=== PATIENT | female | born 1940 | race African-American/Black ===

== ENCOUNTER 2020-03-06 12:40 | Emergency (ER) | payer BC ==
[~2020-03-06] VITALS: Ht 160 cm; Wt 82.0 kg
[2020-03-06] MEDS ORDERED: ACETAMINOPHEN 325MG TABLET PO ONE (15:30)
[2020-03-06 16:00] VITALS: BP 140/37
[2020-03-07] MEDS ORDERED: METF-816 MT (14:21)
[2020-03-07] MEDS ORDERED: LOSA100T32 MT (14:21)
[2020-03-07] MEDS ORDERED: LEVO100T9 MT (14:21)
[2020-03-07] MEDS ORDERED: GLIP5TAB12 MT (17:06)
== END 2020-03-06 18:10 | disposition home or self-care (01) ==
LOC: EDBD → ER 12:40
DX: S93.402A Sprain of unspecified ligament of left ankle, initial encounter (principal); I10 Essential (primary) hypertension; E11.9 Type 2 diabetes mellitus without complications; W18.30XA Fall on same level, unspecified, initial encounter; Y93.89 Activity, other specified; Y92.89 Other specified places as the place of occurrence of the external cause; Y99.8 Other external cause status
CPT/HCPCS: 73590; 73630; 93971; 99284